=== PATIENT | female | born 1985 | race Caucasian/White ===

== ENCOUNTER 2016-10-25 06:09 | Emergency (ER) | payer OTHER ==
--- NOTE | ~2016-10-25 | CR63 ---
[facility] A Service of [facility] & [facility] RADIOLOGY TEXT RESULTS PATIENT: TARUN DUFFY LOCATION: [facility] : 85 UNIT #: [id number] AGE: [address]: Calin Osuna MD SEX: F ORDER DR: [id number] [facility] [address] [place], [place] [address] [id number] E MR#: [id number] Acc #: [id number] NAME: TARUN DUFFY : 1985 SEX: F STUDY DATE/TIME: 10/25/2016 10:54 UNIT: [facility] ROOM: STUDY DESCRIPTION: CR Chest 2 View Attending Physician: Brandon Osuna M.D. Ordering Physician: Jean Perry M.D. Primary Care Physician: Primary Care Physician No MEDICAL IMAGING REPORT This report is preliminary unless electronic signature is present EXAM Chest 2 views, 10/25/2016 10:54 hours HISTORY 31-year-old woman with shortness of air and right rib pain today. History of cervical cancer and asthma. COMPARISON 09/18/2013 FINDINGS Upright PA and lateral views of the chest demonstrate low lung volumes. The cardiac, mediastinal and hilar contours are normal. The lungs are clear. There is no pleural effusion, pneumothorax or bone lesion. IMPRESSION Low lung volumes with no acute cardiopulmonary findings. There is no pleural effusion, pneumothorax or bone lesion seen. Dictated by... Kimber Lock M.D. THIS IS AN ELECTRONICALLY VERIFIED REPORT Kimber Lock M.D. at 10/26/2016 9:15 AM Abiel TD: 10/25/2016 14:31 JOB #: [id number] MEDICAL IMAGING REPORT Page 1 of 1 COPY
--- NOTE | ~2016-10-25 | US67 ---
[facility] A Service of [facility] & [facility] RADIOLOGY TEXT RESULTS PATIENT: TARUN DUFFY LOCATION: [facility] : 85 UNIT #: [id number] AGE: [address]: Calin Osuna MD SEX: F ORDER DR: [id number] [facility] [address] [place], [place] [address] [id number] E MR#: [id number] Acc #: [id number] NAME: TARUN DUFFY : 1985 SEX: F STUDY DATE/TIME: 10/25/2016 11:20 UNIT: [facility] ROOM: STUDY DESCRIPTION: US Gallbladder Attending Physician: Brandon Osuna M.D. Referring Physician: Rene Knapp M.D. Ordering Physician: Jeovanny Patton M.D. Primary Care Physician: No Primary Care Physician MEDICAL IMAGING REPORT This report is preliminary unless electronic signature is present EXAM Ultrasound of the gallbladder. INDICATION Abdominal pain for 1 month. TECHNIQUE Wolf-scale and color Doppler sonographic images were obtained through the right upper quadrant. FINDINGS There is very limited visualization of the pancreas. The patient's liver is enlarged measuring up to 17.1 cm in craniocaudal dimensions, however, it is homogeneous in echotexture. No focal hepatic lesions are seen and there is no intra or extrahepatic biliary dilatation. Right kidney is normal in appearance, with no solid or cystic renal masses seen, and no hydronephrosis identified. No stones are sludge are seen within the gallbladder, and there is no gallbladder wall thickening or pericholecystic fluid. Main portal vein is patent with hepatopetal flow. IMPRESSION The patient is noted to have hepatomegaly, with the liver measuring up to 17.1 cm in craniocaudal dimensions, however, no focal hepatic lesions were seen. Remainder of this study is unremarkable. Dictated by... Chula Sanchez M.D. THIS IS AN ELECTRONICALLY VERIFIED REPORT Chula Sanchez M.D. at 10/25/2016 5:55 PM AFF/jt [facility] A Service of [facility] & [facility] RADIOLOGY TEXT RESULTS PATIENT: TARUN DUFFY LOCATION: [facility]ES [facility] #: [id number] : [birth year] UNIT #: [id number] AGE: [address]: Calin Osuna MD SEX: F ORDER DR: TD: 10/25/2016 15:50 JOB #: [id number] MEDICAL IMAGING REPORT Page 1 of 1 COPY
[~2016-10-25 06:09] MED LIST: ALBUTEROL17 G1; ALBUTEROL17 GM INH; ANUSOL SUPP1 SUPP PR; CALAN PO; COMBIVENT INH14.7 GM INH; EXCEDRIN MIGRAI1 TA1 PO; FLEXERIL PO; FLEXERIL10 MG PO; FLONASE16 GM; IBUPROFEN800 MG PO; ILOTYCIN1 GM OD; LORTAB 5/500 TA1 TA1 PO; LORTAB 7.51 TAB 7.5/ PO; MELATONIN3 MG PO; PHENERGAN; PHENERGAN PO; PHENERGAN PR; PHENERGAN25 MG PO; PRENATAL VITAMI1 TA3; PROZAC PO; VICODIN 5/500 T1 TAB PO; XANAX0.5 MG PO; ZITHROMAX PO
[2016-10-25 09:37] LABS: BASOPHIL# 0.1 X10e3 (0-0.3); BASOPHIL% 0.8 % (0-2.5); EOSINOPHIL# 0.4 X10e3 (0-0.7); HEMATOCRIT 39.1 % (35.0-45.0); HEMOGLOBIN 13.1 gm/dL (12.0-16.0); LYMPHOCYTE# 2.7 X10e3 (1.0-3.5); LYMPHOCYTE% 24.8 % (17.0-45.0); MEAN CELL VOLUME 88.1 FL (83-96); MEAN CORPUSCULAR HEMOGLOBIN 29.4 PG (28-34); MEAN CORPUSCULAR HGB CONC 33.4 g/dL (30-36); MEAN PLATELET VOLUME 7.4 FL (6.5-11.5); MONOCYTE# 0.8 X10e3 (0-1.0); MONOCYTE% 7.1 % (3.0-12.0); NEUTROPHIL# 6.9 X10e3 (1.5-7.1); NEUTROPHIL% 63.3 % (40-75); PLATELET COUNT 448 X10e3 (140-420); RED BLOOD COUNT 4.44 X10e (3.90-5.30)
[2016-10-25 09:39] LABS: DIFF IND NO
[2016-10-25 09:42] LABS: URINE SOURCE CLEAN CATCH
[2016-10-25 09:56] LABS: CULTURE INDICATED? YES; URINE APPEARANCE CLEAR; URINE BACTERIA AUWI 2+ (NEGATIVE); URINE BILIRUBIN NEG (NEG); URINE BLOOD NEG (NEG); URINE COLOR YELLOW; URINE GLUCOSE NEG (NEG); URINE KETONE TRACE (NEG); URINE LEUKOCYTE ESTERASE 1+ (NEG); URINE NITRATE NEG (NEG); URINE PH 6.5 (5-8); URINE PROTEIN NEG (NEG); URINE SPECIFIC GRAVITY 1.029 (1.003-1.035); URINE SQUAMOUS EPITHELIAL CELL MOD /[HPF]
[2016-10-25 10:10] LABS: ALBUMIN SERUM 3.6 g/dL (3.5-5.0); BILIRUBIN,TOTAL 0.4 mg/dL (0.2-2.0); CALCIUM SERUM 9.2 mg/dL (8.4-10.2); CREATININE SERUM 0.5 mg/dL (0.6-1.4); POTASSIUM 4.3 mmol/L (3.5-5.1)
[2016-10-25 10:22] LABS: AMPHETAMINE POS (NEG); BARBITURATES NEG (NEG); BENZODIAZEPINES POS (NEG); COCAINE NEG (NEG); MARIJUANA NEG (NEG); OPIATES NEG (NEG); TRICYCLIC ANTIDEPRESSANTS NEG (NEG); U METHADONE NEG (NEG)
== END 2016-10-25 14:10 | disposition home or self-care (01) ==
LOC: CED 06:09
PROVIDERS: Physician Assistant Medical
DX: R10.11 Right upper quadrant pain (principal); J45.909 Unspecified asthma, uncomplicated; F32.9 Major depressive disorder, single episode, unspecified; G89.29 Other chronic pain; M54.9 Dorsalgia, unspecified; Z79.51 Long term (current) use of inhaled steroids; Z79.899 Other long term (current) drug therapy; F17.210 Nicotine dependence, cigarettes, uncomplicated
CPT/HCPCS: 71020; 76705; 80053; 80307; 81003; 82150; 83690; 84703; 85025; 87086; 96361; 96374; 96375; 99284; C9113; J1885; J2405